=== PATIENT | male | born 1990 | race Caucasian/White ===

== ENCOUNTER 2025-04-11 06:03 | Inpatient (IN) | payer MEDICARE, MEDICAID ==
[2025-04-11] MEDS ORDERED: IBUPROFEN 600 MG TAB PO PRN (06:13)
[2025-04-11] MEDS ORDERED: LORazepam 1 MG TAB PO PRN (06:13)
[2025-04-11] MEDS ORDERED: MAGNESIUM HYDROXIDE 2,400 MG/30 ML CUP PO PRN (06:13)
[2025-04-11] MEDS ORDERED: ACETAMINOPHEN TAB 325 MG TAB PO PRN (06:13)
[2025-04-11] MEDS ORDERED: HALOPERIDOL LACTATE 5 MG/ML 1 ML VIAL IM PRN (06:13)
[2025-04-11] MEDS ORDERED: MAG HYDROX/AL HYDROX/SIMETH 355 ML BOTTLE PO PRN (06:13)
[2025-04-11] MEDS: NICOTINE 14MG/24HR PATCH TRANSDERM SCH (12:43)
[2025-04-11 12:55] VITALS: RESP 16
--- NOTE | 2025-04-12 07:53 | P.HP ---
Psychiatric H&P - . H&P Date: 04/12/25 History & Physical: Allergies Allergy/AdvReac Type Severity Reaction Status Date / Time Penicillins Allergy Unknown Verified 04/11/25 06:10 Sulfa (Sulfonamide Allergy Unknown Verified 04/11/25 06:10 Antibiotics) Vital Signs Temp 97.7 F 04/11/25 12:20 Pulse 79 04/11/25 12:20 Resp 16 04/11/25 12:20 BP 121/79 04/11/25 12:20 Pulse Ox 95 04/11/25 12:20 FiO2 Intake & Output 04/11/25 04/12/25 04/12/25 18:59 06:59 18:59 Weight 75.24 kg 04/12/25 07:47 IDENTIFYING DATA: Patient is a 35-year-old homeless male from [facility] HPI: The patient presented to the hospital from [facility] under CERT stating that the patient was not responding and was having auditory hallucinations and making brief suicidal thoughts with no description. When entering the patient's room he was lying in bed easily awake able patient relayed that he did not want to get out of bed and refused to do the interview. PAST PSYCHIATRIC HISTORY: The patient has a history of Schizoaffective bipolar disorder per records. Unknown. Unknown. Unknown. Unknown PMH: as per ER note from ALLERGIES: as per EMR CHEMICAL DEPENDENCY HISTORY: as per HPI FAMILY PSYCHIATRIC/SUBSTANCE USE HISTORY: Unknown SOCIAL HISTORY: The patient is currently homeless. MENTAL STATUS EXAM: General Appearance: Patient appears to be his stated age is alert, appeared disheveled but appropriately dressed Behavior: The patient refused to get out of his bed and was uncooperative. Speech: Patient's speech is fluent and nonpressured. Mood/Affect: Patient reports their mood is agitated, affect is congruent and constricted. Suicidality/Homicidality: Did not respond Perceptions: Did not respond Though content/process: Linear and logical Memory and concentration: AOX3, grossly intact for the purposes of this session. Judgment and insight: Poor/Poor STRENGTHS/WEAKNESSES: strength is that patient is resilient. Weakness is that patient has poor judgment and is impulsive INTELLECT: Below average Diagnosis: Per record Schizoaffective disorder bipolar type PLAN: -Patient is admitted under involuntary status to MHU for stabilization of psychiatric symptoms and safety. Patient has not signed adult voluntary form and medication consent and is placed in patient's chart. Will hold off on second CERT to see if the patient will sign himself in voluntarily. -Medications : Start Zyprexa Zydis 5 mg take 1 tablet by mouth twice daily as needed for mood/psychosis -Ativan and Haldol PRN for agitation/aggression -Patient was informed of the risks, benefits and side effects of the medication and patient verbally consented to taking the medications. Patient signed med consent form and was placed in chart. -Internal Medicine consult to perform medical evaluation and physical. -NRT -nicotine patch -SW on board for discharge planning. Encourage patient to participate in groups to work on coping skills. Will await deferral and court date.
[2025-04-13 10:03] VITALS: BP 93/59; PULSE 48; TEMP 98.2
--- NOTE | 2025-04-13 11:19 | P.DS ---
Providers Date of admission: 04/11/25 11:37 Admission HPI: Admission note was completed by Dr. Dueñas "The patient presented to the hospital from [facility] under CERT stating that the patient was not responding and was having auditory hallucinations and making brief suicidal thoughts with no description. When entering the patient's room he was lying in bed easily awake able patient relayed that he did not want to get out of bed and refused to do the interview." Hospital course: Upon admission to the unit patient was directable and agreeable to commence treatment and signed adult voluntary form. The patient's did not participate in the group activities he did not participate with his peers or interact with others but was calm and polite during his admission. The patient was able to follow unit protocol and policy. The patient was compliant with the medications and denied any side effects throughout hospital course. Patient was also seen by medical team for history and physical exam. Throughout the course of the hospitalization patient gradually improved with regards to mood, anxiety, sleep and returned back to their baseline level of functioning became more future oriented with improved insight and judgment. On the day of discharge the patient denied any suicidal or homicidal thoughts. He notes that he is not having any depression or anxiety. He denied any auditory or visual hallucinations. He was able to voice a safety plan including 911 and [phone]. He was able to identify the nearest ER in the [facility] [address]. He notes that his sleep, energy, appetite and concentration are good. He denied any side effects with the medication. Mental status exam: General Appearance: Patient appears to be his stated age is alert, pleasant. Patient is in no acute distress and has improved hygiene and grooming Behavior: Patient is calmly seated without any agitated behavior. Speech: Patient's speech is fluent and nonpressured. Mood/Affect: Patient reports their mood is "better good", affect is congruent and euthymic. Suicidality/Homicidality: Patient denies having any suicidal or homicidal ideation intent or plan. Perceptions: Patient denies any auditory or visual hallucinations. Though content/process: There is no evidence of any delusional thought content and thought process is linear and goal-directed. More future oriented Memory and concentration: AOX3, grossly intact for the purposes of this session. Can spell "WORLD" backwards correctly. Judgment and insight: Chronically poor, however has improved with guarded prognosis Impression: Schizoaffective bipolar type Nicotine dependence Plan: -Continue with discharge today as patient has improved and stabilized psychiatrically and is not currently an imminent threat to themself and/or others. Patient will remain at chronically elevated risk for harm to self and/or others due to their impulsivity and substance abuse. -Continue medications: Zyprexa Zydis 5 mg take 1 tablet by mouth twice daily for schizoaffective disorder -Patient was counseled on the need for medication compliance and appropriate follow-up at mental health and also primary care for medical issues. Patient verbalized understanding and agreed. -Social work to help coordinate patients discharge today arrange for and conduct family meeting to ensure safety upon discharge and answer any questions/concerns. also to ensure safe home environment that guns/weapons are either removed from the home or locked away. Social work also to arrange for patients follow up appointments with [facility] for psychiatric care along with follow up with primary care provider. -Patient counseled on abstaining from recreational drugs and marijuana and alcohol. Was informed/educated on the adverse effects on their physical and mental health. Patient verbally agreed and understood. Patient was offered substance abuse treatment however declined at this time. -Patient was instructed to return to the hospital or seek immediate medical care if their psychiatric or medical symptoms do worsen or reoccur. Expected date of discharge: 04/13/25 Attending physician: Christelle Dumas MD Admission HPI: Admission note was completed by Dr. Dueñas "The patient presented to the hospital from [facility] under CERT stating that the patient was not responding and was having auditory hallucinations and making brief suicidal thoughts with no description. When entering the patient's room he was lying in bed easily awake able patient relayed that he did not want to get out of bed and refused to do the interview." Hospital course: Upon admission to the unit patient was agreeable to commence treatment and signed adult voluntary form. Patient stayed mainly to his room and slept most of the time and did not participate in group activities or interact with his peers. The patient followed unit protocol. Patient was compliant with the medications and denied any side effects throughout hospital course. Patient was started on held. Patient was also seen by medical team for history and physical exam. Throughout the course of the hospitalization patient gradually improved with regards to mood, anxiety, sleep and returned back to their baseline level of functioning became more future oriented with improved insight and judgment. On the day of discharge the patient denied any suicidal or homicidal ideations. He notes that he was not having any auditory or visual hallucinations. He was able to voice a safety plan including 911 and 988+ knowing where the nearest emergency room is. The patient notes that he is not depressed or anxious. He denied any problems with sleep, energy, appetite or concentration. Mental status exam: General Appearance: Patient appears to be his stated age is alert, pleasant, and cooperative. Patient is in no acute distress and has improved hygiene and grooming Behavior: Patient is calmly seated without any agitated behavior. Speech: Patient's speech is fluent and nonpressured. Mood/Affect: Patient reports their mood is "better good", affect is congruent and euthymic. Suicidality/Homicidality: Patient denies having any suicidal or homicidal ideation intent or plan. Perceptions: Patient denies any auditory or visual hallucinations. Though content/process: There is no evidence of any delusional thought content and thought process is linear and goal-directed. More future oriented Memory and concentration: AOX3, grossly intact for the purposes of this session. Can spell "WORLD" backwards correctly. Judgment and insight: Chronically poor, however has improved with guarded prognosis Impression: [] [Nicotine dependence] Plan: -Continue with discharge today as patient has improved and stabilized psychiatrically and is not currently an imminent threat to themself and/or others. [Patient will remain at chronically elevated risk for harm to self and/or others due to their impulsivity and substance abuse.] -Continue medications: [] -Patient was counseled on the need for medication compliance and appropriate follow-up at mental health and also primary care for medical issues. Patient verbalized understanding and agreed. -Social work to [help coordinate patients discharge today][arrange for and conduct family meeting to ensure safety upon discharge and answer any questions/concerns]. also to ensure safe home environment that guns/weapons are either removed from the home or locked away. Social work also to arrange for patients follow up appointments [with [facility]] for psychiatric care along with follow up with primary care provider. -Patient counseled on abstaining from recreational drugs and marijuana and alcohol. Was informed/educated on the adverse effects on their physical and mental health. Patient verbally agreed and understood. [Patient was offered substance abuse treatment however declined at this time.] -Patient was instructed to return to the hospital or seek immediate medical care if their psychiatric or medical symptoms do worsen or reoccur. [INSERT DATA FORMATS] Consults: 04/11/25 06:13 Consult Physician Routine Consulting Provider: Aniyah Martinez Consult Reason/Comments: H & P Do you want consulting provider notified?: Yes Primary care physician: Stated None - Discharge Diagnosis(es) (1) Schizoaffective disorder Current Visit: Yes Status: Resolved Priority: Low Plan - Discharge Summary Activity/Diet/Wound Care/Special Instructions: [facility] Discharge Info Avoid the use of street drugs and alcohol. Take all medications as prescribed. When you are in need of refills on your medications, please contact your outpatient medical provider and/or outpatient psychiatrist. Please go to your scheduled outpatient appointments for aftercare treatment. If symptoms return or become worse, call the crisis line at or and/or visit the nearest emergency room for assistance. National Suicide and Crisis Lifeline - call or text 493.
== END 2025-04-13 12:52 | disposition home or self-care (01) | DRG 885 ==
LOC: 3MHU 11:37
PROVIDERS: ADMIT Psychiatry & Neurology Psychiatry; ATTEND Psychiatry & Neurology Psychiatry
DX: F25.0 Schizoaffective disorder, bipolar type (principal); R45.851 Suicidal ideations; Z59.00 Homelessness unspecified; F17.200 Nicotine dependence, unspecified, uncomplicated; F41.9 Anxiety disorder, unspecified